=== PATIENT | female | born 1975 | race Caucasian/White ===

== ENCOUNTER 2016-06-13 14:30 | Outpatient (RCR) | payer BC ==
--- NOTE | 2016-05-27 15:27 | PT/OT/ST INITIAL EVALUATION ---
Department of Health and Human Services Form Approved [facility] Care Financing Administration OMB No. [id number] PLAN OF CARE/ASSESSMENT FOR OUTPATIENT REHABILITATION (Complete for Initial Claims Only) 1. PATIENT'S NAME Keturah Monk 2. ACC # [id number] [id number] 4. PROVIDER NO. [id number] 5. TYPE: PT 6. PRIOR HOSPITALIZATION None 7. PRIMARY DX Bilateral plantar fascitis 8. SECONDARY DX Limited dorsiflexion due to pain at both ankles. 9. ONSET DATE November 2015 10. REFERRAL DATE 05/19/2016 11. SOC. DATE 05/24/2016 12. TIME OF EVAL 14:[address] Agustin Lake 13. CHARGES/UNITS Evaluation, ultrasound, manual therapy, TherEx 14. G CODES NA 15. PRIOR LEVEL OF FUNCTION; PERTINENT HISTORY (Prior therapy results, reason for referral.) S: Reason for therapy: The patient was referred to physical therapy by Dr. Lake with the diagnosis of bilateral plantar fascitis. The patient reports that she has been experiencing pain at both her heels and feet since November 2015. The patient complains of tightness at her calves and feels like she is walking up on her toes frequently. The patient also notes increased pain in the morning when she first gets up or when she tries to walk barefoot. The patient attempted stretching; however, due to the pain she has difficulty. She states that she sleeps normally with her points pointed. The patient has lost 60 pounds and is frustrated by the inability to exercise due to pain at her feet. The patient performs Corey for high impact exercising. Pain level: Current pain rating is 7/10. Current medications: Includes ibuprofen and Tylenol as needed. Personal health rating: She rates overall health as good. Patient's Goal: The patient's goal is to not be in pain after exercising. 16. INITIAL ASSESSMENT/SAFETY PRECAUTIONS/MEDICAL COMPLICATIONS (Level of function at start of care. Be specific, use objective measures, list problems.) O: APPEARANCE AND OBSERVATION: The patient is a 40-year-old female. In standing she demonstrates pes cavus at both mid foots. Heel alignment appears good, as well as foot alignment. When walking the patient ambulates with an antalgic gait with limited heel to toe due to pain at her feet. PALPATION: The patient has tenderness to palpation at bilateral posterior tib tendon and at plantar surface medial aspect of her calcaneus. RANGE OF MOTION/FLEXIBILITY: Right ankle dorsiflexion 4 degrees, plantar flexion 50 degrees, inversion 22 degrees and eversion 16 degrees. Left ankle dorsiflexion 2 degrees, plantar flexion 68 degrees, inversion 22 degrees, and eversion 7 degrees. STRENGTH: Bilateral ankle strength was 5/5 manual muscle test. TODAY'S TREATMENT: Treatment included initial evaluation followed by ultrasound to bilateral posterior tib and plantar surface of medial calcaneus. Also performed gentle manual stretching and mobilizations to the patient's ankle and calf. The patient was then instructed on home exercise program for flexibility. The patient was also educated on the importance of purchasing a night splint to sleep in to help put her foot in a more neutral position. 17. INITIAL POC: (Specify procedures, modalities, short and manager intermediate goals) A: The patient presents with bilateral plantar fascitis with limited dorsiflexion due to pain. SHORT TERM GOALS: 1. The patient to be compliant with home stretching program in 1 week. 2. The patient to demonstrate 10 degrees dorsiflexion at both left and right ankle in 4 weeks. 3. The patient to report 50% decrease in general pain with normal walking and daily activities in 4 weeks. 4. The patient to be wearing night splint routinely in 4 weeks. 5. The patient to report that she is able to perform high impact exercises with a pain rating of 1 to 2/10 in 6 weeks. P: The patient will be seen 2 times a week over the next 6 weeks. Treatment to include modalities and manual therapy to decrease pain and inflammation. We will progress the patient with range of motion, flexibility, stabilization, and light strengthening activities as tolerated. 18. FREQUENCY 2 times a week 19. DURATION 6 weeks 20. FUNCTIONAL LEVEL (End of claim period) 21. PHYSICIAN SIGNATURE ? ON FILE OR ENTER HERE: 22. DATE: I certify the need for these services furnished under this plan of care and if for partial hospitalization. 23. CERTIFICATION FROM THROUGH [id number]
[~2016-06-13 14:30] MED LIST: CEPH-507 PO; FERR-74 PO; IBUP-793 PO; OXYC1TAB87 PO; PNV1TABL71 PO
== END 2016-06-19 12:00 | disposition home or self-care (01) ==
LOC: PT 14:30
PROVIDERS: ATTEND Family Medicine
DX: M72.2 Plantar fascial fibromatosis (principal); M25.572 Pain in left ankle and joints of left foot; M25.571 Pain in right ankle and joints of right foot